=== PATIENT | male | born 1970 | race Two or more races ===

== ENCOUNTER 2023-10-14 15:07 | Inpatient (IN) | payer MEDICAID ==
[~2023-10-14] VITALS: Ht 154.9 cm; Wt 59.0 kg
[2023-10-14 17:59] LABS: Basophils # (auto) 0 10 ^3/uL (0-0.2); Eosinophils # (auto) 0 10 ^3/uL (0-0.8); Eosinophils % (auto) 0.1 % (0.0-7.0); Monocytes # (auto) 0.3 10 ^3/uL (0-1.3); Neutrophils # (auto) 2.5 10 ^3/uL (1.6-8.6); Neutrophils % (auto) 74.8 % (37.0-80.0)
[2023-10-14 18:02] LABS: Basophils % (auto) 0.6 % (0.0-2.0); Hematocrit 21.9 % (41.0-53.0); Lymphocytes # (auto) 0.5 10 ^3/uL (0.4-5.4); Lymphocytes % (auto) 15.7 % (10.0-50.0); Mean Corpuscular Hemoglobin 22.1 pg (28.0-32.0); Mean Corpuscular Hgb Conc. 30.7 g/dL (32.0-36.0); Monocytes % (auto) 8.8 % (0.0-12.0); Red Blood Cells 3.04 10^6/uL (4.5-5.90); Red Cell Distribution Width 17.1 % (11.8-14.3); White Blood Cell 3.4 10^3/uL (4.4-10.8)
[2023-10-14 18:07] LABS: Hemoglobin 6.7 g/dL (13.5-17.5)
[2023-10-14 18:15] LABS: Alanine Aminotransferase 17 U/L (7-40); Albumin 3.6 g/dL (3.2-4.8); Alkaline Phosphatase 95 U/L (46-116); Anion Gap 5 (5-15); Aspartate Aminotransferase 34 U/L (13-40); BUN/Creatinine Ratio 15.6 (10.0-20.0); Bilirubin, Total 0.9 mg/dL (0.2-1.0); Blood Urea Nitrogen 17 mg/dL (9-23); Calcium 8.2 mg/dL (8.5-10.1); Carbon Dioxide 23 mmol/L (20-30); Chloride 107 mmol/L (98-107); Glucose 94 mg/dL (74-106); Potassium 3.6 mmol/L (3.5-5.1); Sodium 135 mmol/L (136-145); Total Protein 7.8 g/dL (5.7-8.2)
[2023-10-14 18:24] LABS: CRP High Sensitivity 3.16 mg/dL (<1.0)
[2023-10-14] MEDS: PIPERACILLIN-TAZOB 3.375GM 100 ML IV ONE (19:01)
[2023-10-14] MEDS: VANCOMYCIN 1GM/200ML 200 ML IV ONE (19:01)
[2023-10-14 19:03] LABS: Erythrocyte Sedimentation Rate 111 mm/hr (0-20)
[2023-10-14 19:25] VITALS: PULSE 93; RESP 24; O2SAT 100
[2023-10-14 19:29] LABS: Anisocytosis Slight; Hypochromia Moderate; Platelet Estimate Decreased
[2023-10-14] MEDS: VANCOMYCIN PER PHARMACY 0 MG IV SCH (20:23)
[2023-10-14] MEDS ORDERED: NITROGLYCERIN 0.4 MG SL TAB SL PRN (22:15)
[2023-10-14] MEDS ORDERED: DOCUSATE SOD 100 MG CAP PO PRN (22:15)
[2023-10-14] MEDS ORDERED: ONDANSETRON HCL 4 MG/2 ML VIAL IV PRN (22:15)
[2023-10-14] MEDS ORDERED: RABIES IMMUNE GLOBULIN 300unit/2ml (150unit/ml) INJ IM ONE (22:15)
[2023-10-14] MEDS ORDERED: MORPHINE SULFATE INJ 2 MG/ml SYRG IV PRN ×2 (22:15)
[2023-10-14 22:19] LABS: Urine Bacteria None Seen /hpf (None Seen)
[2023-10-14 22:35] LABS: Urine Blood TRACE /uL (Negative); Urine Clarity Clear (Clear); Urine Color Yellow (Yellow); Urine Mucus FEW (None Seen); Urine Protein, UAD TRACE (Negative); Urine Urobilinogen Normal (Negative); Urine WBC <1 /hpf (0 - 3); Urine pH 5.5 (5.0-9.0)
[2023-10-14 22:36] LABS: Amphetamine Screen, Urine Neg (NEGATIVE); Barbiturate Scree,Urine Neg (NEGATIVE); Benzodiazephine Screen, Urine Neg (NEGATIVE); Cannabinoid Screen, Urine Neg (NEGATIVE); Cocaine Screen, Urine Neg (NEGATIVE); Opiate Scree,Urine Neg (NEGATIVE); Phencyclidine Screen, Urine Neg (NEGATIVE)
[2023-10-14 22:41] LABS: % Iron Saturation 4.9 % (20-55)
[2023-10-14] MEDS: PIPERACILLIN-TAZOB 3.375GM 100 ML IV SCH (22:51)
[2023-10-14] MEDS: TETANUS-DIPTH-ACEL PERTUSSIS 0.5ML SYR Tdap IM ONE (22:54)
[2023-10-14] MEDS: ACETAMINOPHEN 325 MG TAB PO PRN (23:06)
[2023-10-14 23:25] VITALS: BP 120/56; PULSE 98; RESP 15; TEMP 100.2
[2023-10-14 23:48] VITALS: BP 97/55; PULSE 88; RESP 19; TEMP 103
[2023-10-15] VITALS (12 sets, daily range): BP systolic 100–135; BP diastolic 61–72; PULSE 76–89; RESP 16–20; TEMP 98–100.3; O2SAT 96–100
[2023-10-15] MEDS: HYDROcodone-ACET 5/325MG TAB PO PRN (04:37)
[2023-10-15 06:16] LABS: Basophils # (auto) 0 10 ^3/uL (0-0.2); Basophils % (auto) 0.6 % (0.0-2.0); Eosinophils # (auto) 0 10 ^3/uL (0-0.8); Lymphocytes # (auto) 0.5 10 ^3/uL (0.4-5.4); Monocytes # (auto) 0.3 10 ^3/uL (0-1.3); Neutrophils # (auto) 2.3 10 ^3/uL (1.6-8.6); White Blood Cell 3.2 10^3/uL (4.4-10.8)
[2023-10-15 06:19] LABS: Eosinophils % (auto) 0.2 % (0.0-7.0); Hematocrit 25.5 % (41.0-53.0); Hemoglobin 8.3 g/dL (13.5-17.5); Lymphocytes % (auto) 15.5 % (10.0-50.0); Mean Corpuscular Hemoglobin 24.1 pg (28.0-32.0); Mean Corpuscular Hgb Conc. 32.6 g/dL (32.0-36.0); Mean Corpuscular Volume 74.1 fL (80.0-100.0); Monocytes % (auto) 10.3 % (0.0-12.0); Neutrophils % (auto) 73.4 % (37.0-80.0); Nucleated Red Blood Cells % 0.1 %; Red Blood Cells 3.45 10^6/uL (4.5-5.90); Red Cell Distribution Width 19.4 % (11.8-14.3)
[2023-10-15 06:30] LABS: Alanine Aminotransferase 15 U/L (7-40); Alkaline Phosphatase 93 U/L (46-116); Anion Gap 6 (5-15); Aspartate Aminotransferase 28 U/L (13-40); BUN/Creatinine Ratio 13.3 (10.0-20.0); Blood Urea Nitrogen 16 mg/dL (9-23); Calcium 8.3 mg/dL (8.7-10.4); Carbon Dioxide 21 mmol/L (20-30); Chloride 108 mmol/L (98-107); Glucose 113 mg/dL (74-106); Potassium 3.7 mmol/L (3.5-5.1); Sodium 135 mmol/L (136-145)
[2023-10-15 06:31] LABS: Albumin 3.2 g/dL (3.2-4.8); Bilirubin, Total 1.1 mg/dL (0.2-1.0); Total Protein 7.3 g/dL (5.7-8.2)
[2023-10-15] MEDS: PANTOPRAZOLE 40 MG/10 ML VIAL INJ IV SCH (10:16)
[2023-10-15] MEDS ORDERED: VANCOMYCIN 750mg/150ml 150 ML IV SCH (11:00)
[2023-10-15 11:09] LABS: % Iron Saturation 11.7 % (20-55)
[2023-10-15 11:31] LABS: INR 1.15 (0.9-1.15); Partial Thromboplastin Time 24.1 SEC (24.5-34.5)
[2023-10-15 11:54] LABS: Folate (Folic Acid) 12.53 ng/mL (>5.38)
[2023-10-15 11:56] LABS: Ferritin 7.3 ng/mL (22-322)
[2023-10-15] MEDS ORDERED: RABIES IMMUNE GLOBULIN 300unit/2ml (150unit/ml) INJ IM ONE (13:15)
[2023-10-15] MEDS: metroNIDAZOLE 500MG/100ML 100 ML IV SCH (20:59)
[2023-10-15] MEDS: CEFEPIME 1GM/ 50ML 50 ML IV SCH (22:14)
[2023-10-16] VITALS (9 sets, daily range): BP systolic 107–119; BP diastolic 70–76; PULSE 76–89; RESP 17–20; TEMP 97.9–100.1; O2SAT 96–99
[2023-10-16] MEDS: RABIES VACCINE (PCEC)/PF 2.5 UNITS IM ONE (00:25)
[2023-10-16] MEDS: RABIES IMMUNE GLOBULIN 300 UNIT/ML INJ IM ONE (00:52)
[2023-10-16 05:54] LABS: Basophils # (auto) 0 10 ^3/uL (0-0.2); Basophils % (auto) 0.7 % (0.0-2.0); Eosinophils # (auto) 0 10 ^3/uL (0-0.8); Eosinophils % (auto) 0.4 % (0.0-7.0); Hematocrit 26.5 % (41.0-53.0); Hemoglobin 8.4 g/dL (13.5-17.5); Lymphocytes # (auto) 0.4 10 ^3/uL (0.4-5.4); Lymphocytes % (auto) 17.2 % (10.0-50.0); Mean Corpuscular Hemoglobin 23.6 pg (28.0-32.0); Mean Corpuscular Hgb Conc. 31.7 g/dL (32.0-36.0); Mean Corpuscular Volume 74.5 fL (80.0-100.0); Monocytes # (auto) 0.2 10 ^3/uL (0-1.3); Monocytes % (auto) 8.8 % (0.0-12.0); Neutrophils # (auto) 1.8 10 ^3/uL (1.6-8.6); Neutrophils % (auto) 72.9 % (37.0-80.0); Nucleated Red Blood Cells % 0.2 %; Red Blood Cells 3.56 10^6/uL (4.5-5.90); Red Cell Distribution Width 19.3 % (11.8-14.3); White Blood Cell 2.5 10^3/uL (4.4-10.8)
[2023-10-16 06:00] LABS: Chloride 106 mmol/L (98-107); Potassium 3.6 mmol/L (3.5-5.1); Sodium 134 mmol/L (136-145)
[2023-10-16 06:01] LABS: Anion Gap 8 (5-15); Carbon Dioxide 20 mmol/L (20-30)
[2023-10-16 06:02] LABS: Calcium 8.3 mg/dL (8.7-10.4)
[2023-10-16 06:06] LABS: Glucose 115 mg/dL (74-106)
[2023-10-16 06:07] LABS: BUN/Creatinine Ratio 11.8 (10.0-20.0); Blood Urea Nitrogen 12 mg/dL (9-23); Magnesium 1.9 mg/dL (1.6-2.6)
[2023-10-16] MEDS ORDERED: PROPOFOL 10 MG/ML 20 ML IV ONE ×2 (13:01→13:26)
[2023-10-16] MEDS ORDERED: KETOROLAC TROMETH 30 MG/ML 1ML VIAL ONE (13:01)
[2023-10-16] MEDS ORDERED: GLYCOPYRROLATE 0.2 MG/ML 1ML VIAL ONE (13:01)
[2023-10-16] MEDS ORDERED: ONDANSETRON HCL 4 MG/2 ML VIAL ONE (13:01)
[2023-10-16] MEDS ORDERED: DexAMETHasone SOD PHOS 10MG/1ML VIAL INJ ONE (13:01)
[2023-10-16] MEDS ORDERED: LIDOCAINE 1% INJ PF 5ML AMP ONE (13:01)
[2023-10-16] MEDS ORDERED: KETAMINE 50mg/ML 1ml syringe ONE (13:23)
[2023-10-16] MEDS: LIDOCAINE 1% HCL (LOCAL ANESTH.) INJ 20ML MDV ONE (13:35)
[2023-10-16] MEDS: VANCOMYCIN HCL 1000 MG VL ONE (13:35)
[2023-10-16] MEDS: BUPIVACAINE 0.25% INJ 50ML VIAL ONE (13:35)
[2023-10-16] MEDS ORDERED: ONDANSETRON HCL 4 MG/2 ML VIAL IV PRN (14:00)
[2023-10-16] MEDS ORDERED: HYDROmorphone HCL 2 MG/ML VL/or syr IV PRN (14:00)
[2023-10-16] MEDS ORDERED: fentaNYL CITRATE 100 MCG/2 ML VL IV PRN (14:00)
[2023-10-16] MEDS ORDERED: ePHEDrine SULFATE 50 MG/ML AMP IV PRN (14:00)
[2023-10-16] MEDS ORDERED: LABETALOL HCL 5 MG/ML 4ML SYRINGE IV PRN (14:00)
[2023-10-16] MEDS ORDERED: NALOXONE HCL 0.4 MG/ML VIAL IV PRN (14:00)
[2023-10-16] MEDS ORDERED: FLUMAZENIL 0.1 MG/ML INJ 10ML MDV IV PRN (14:00)
[2023-10-16] MEDS ORDERED: hydrALAZINE HCL 20 MG/ML VL IV PRN (14:00)
[2023-10-16] MEDS: DexAMETHasone SOD PHOS 4 MG/1ML SDV INJ ONE (16:16)
[2023-10-16] MEDS: EPINEPHrine HCL 1 MG/1 ML AMP ONE (16:16)
[2023-10-16] MEDS: GABAPENTIN 100 MG CAP ONE (16:17)
[2023-10-16] MEDS: ACETAMINOPHEN IV 1000 MG/100ML (10MG/ML) IV ONE (16:17)
[2023-10-16] MEDS: ACETAMINOPHEN IV 100 ML IV ONE (16:17)
[2023-10-16] MEDS: CELECOXIB 100 MG CAP PO ONE (16:17)
[2023-10-16] MEDS: CELECOXIB 100 MG CAP ONE (16:17)
[2023-10-16] MEDS: GABAPENTIN 100 MG CAP PO ONE (16:18)
[2023-10-16] MEDS: ceFAZolin 2 GM/D5W50ml 50 ML IV ONE (16:18)
[2023-10-16] MEDS: AMPICILLIN & SULBACTAM SODIUM 3 GM in SODIUM CHL 0.9% 100 ML IV SCH (17:43)
[2023-10-17 01:00] VITALS: BP 114/48; PULSE 66; RESP 18; TEMP 97.8; O2SAT 97
[2023-10-17 05:00] VITALS: BP 119/65; PULSE 62; RESP 18; TEMP 97.6; O2SAT 97
[2023-10-17 05:45] LABS: Basophils # (auto) 0 10 ^3/uL (0-0.2); Eosinophils # (auto) 0 10 ^3/uL (0-0.8); Hematocrit 25.3 % (41.0-53.0); Lymphocytes # (auto) 0.2 10 ^3/uL (0.4-5.4); Mean Corpuscular Hgb Conc. 31.4 g/dL (32.0-36.0); Monocytes # (auto) 0.1 10 ^3/uL (0-1.3); Neutrophils # (auto) 1.9 10 ^3/uL (1.6-8.6)
[2023-10-17 05:47] LABS: Hemoglobin 7.9 g/dL (13.5-17.5); Lymphocytes % (auto) 10.7 % (10.0-50.0); Mean Corpuscular Hemoglobin 23.6 pg (28.0-32.0); Mean Corpuscular Volume 75.1 fL (80.0-100.0); Monocytes % (auto) 4.5 % (0.0-12.0); Neutrophils % (auto) 84.8 % (37.0-80.0); Nucleated Red Blood Cells % 0.2 %; Red Blood Cells 3.37 10^6/uL (4.5-5.90); Red Cell Distribution Width 19.4 % (11.8-14.3); White Blood Cell 2.3 10^3/uL (4.4-10.8)
[2023-10-17 05:57] LABS: Anion Gap 8 (5-15); Calcium 8.6 mg/dL (8.7-10.4); Carbon Dioxide 20 mmol/L (20-30); Chloride 106 mmol/L (98-107); Potassium 4.1 mmol/L (3.5-5.1); Sodium 134 mmol/L (136-145)
[2023-10-17 06:03] LABS: BUN/Creatinine Ratio 21.8 (10.0-20.0); Blood Urea Nitrogen 19 mg/dL (9-23); Glucose 174 mg/dL (74-106); Magnesium 2.1 mg/dL (1.6-2.6)
[2023-10-17 06:34] LABS: Anisocytosis Slight; Giant Platelets Few; Hypochromia Moderate; Platelet Estimate Decreased
[2023-10-17 06:35] LABS: Ovalocytes FEW
[2023-10-17 08:19] VITALS: BP 107/67; PULSE 78; RESP 20; TEMP 98; O2SAT 98
[2023-10-17] MEDS: IRON SUCROSE COMPLEX 100 ML IV SCH (12:55)
[2023-10-17 13:11] VITALS: BP 129/66; PULSE 71; RESP 19; TEMP 97.6; O2SAT 98
[2023-10-17 16:59] VITALS: BP 123/85; PULSE 77; RESP 21; TEMP 97.6; O2SAT 99
[2023-10-17 22:39] VITALS: BP 128/59; PULSE 78; RESP 18; TEMP 97.7; O2SAT 98
[2023-10-18] VITALS (7 sets, daily range): BP systolic 101–122; BP diastolic 51–67; PULSE 65–75; RESP 16–20; TEMP 97.5–98.1; O2SAT 97–100
[2023-10-18 06:08] LABS: Basophils # (auto) 0 10 ^3/uL (0-0.2); Eosinophils # (auto) 0 10 ^3/uL (0-0.8); Hemoglobin 8.7 g/dL (13.5-17.5); Monocytes # (auto) 0.2 10 ^3/uL (0-1.3); Neutrophils # (auto) 1.9 10 ^3/uL (1.6-8.6); White Blood Cell 2.4 10^3/uL (4.4-10.8)
[2023-10-18 06:11] LABS: Hematocrit 27.4 % (41.0-53.0); Lymphocytes # (auto) 0.3 10 ^3/uL (0.4-5.4); Lymphocytes % (auto) 12.4 % (10.0-50.0); Mean Corpuscular Hemoglobin 23.3 pg (28.0-32.0); Mean Corpuscular Hgb Conc. 31.7 g/dL (32.0-36.0); Mean Corpuscular Volume 73.5 fL (80.0-100.0); Monocytes % (auto) 7.4 % (0.0-12.0); Neutrophils % (auto) 80.2 % (37.0-80.0); Nucleated Red Blood Cells % 0.3 %; Red Blood Cells 3.73 10^6/uL (4.5-5.90); Red Cell Distribution Width 19.1 % (11.8-14.3)
[2023-10-18 06:21] LABS: Anion Gap 7 (5-15); Carbon Dioxide 23 mmol/L (20-30); Chloride 110 mmol/L (98-107); Potassium 3.7 mmol/L (3.5-5.1); Sodium 140 mmol/L (136-145)
[2023-10-18 06:22] LABS: Calcium 8.6 mg/dL (8.5-10.1)
[2023-10-18 06:27] LABS: BUN/Creatinine Ratio 15.8 (10.0-20.0); Blood Urea Nitrogen 16 mg/dL (9-23); Glucose 111 mg/dL (74-106)
== END 2023-10-18 18:14 | disposition home health service (06) | DRG 710 ==
LOC: ER 15:07 → TELE 22:24 → TELE-CENTR 10-15 02:30 → CENTRAL 10-15 15:04
PROVIDERS: ADMIT Internal Medicine Pulmonary Disease; ATTEND Internal Medicine Pulmonary Disease
PROC: 30233N1 Transfusion of Nonautologous Red Blood Cells into Peripheral Vein, Percutaneous Approach (ICD-10-PCS; principal; 2023-10-14)
PROC: 0KBC0ZZ Excision of Right Hand Muscle, Open Approach (ICD-10-PCS; 2023-10-14)
PROC: 3E0234Z Introduction of Serum, Toxoid and Vaccine into Muscle, Percutaneous Approach (ICD-10-PCS; 2023-10-16)
DX: A41.9 Sepsis, unspecified organism (principal); D61.818 Other pancytopenia; D69.6 Thrombocytopenia, unspecified; S61.451A Open bite of right hand, initial encounter; D50.9 Iron deficiency anemia, unspecified; D64.9 Anemia, unspecified; L03.113 Cellulitis of right upper limb; L02.511 Cutaneous abscess of right hand; S62.612A Displaced fracture of proximal phalanx of right middle finger, initial encounter for closed fracture; W54.0XXA Bitten by dog, initial encounter; Z83.3 Family history of diabetes mellitus; Z85.89 Personal history of malignant neoplasm of other organs and systems; Y93.89 Activity, other specified; Y92.89 Other specified places as the place of occurrence of the external cause; Y99.8 Other external cause status; Z21 Asymptomatic human immunodeficiency virus [HIV] infection status; Z20.3 Contact with and (suspected) exposure to rabies; Z29.14 Encounter for prophylactic rabies immune globulin
CPT/HCPCS: 36415; 36430; 71045; 73200; 80048; 80053; 80307; 81001; 82270; 82607; 82728; 82746; 83540; 83550; 83605; 83615; 83735; 84484; 85025; 85045; 85610; 85652; 85730; 86141; 86850; 86880; 86900; 86901; 86920; 87040; 87070; 87075; 87205; 90375; 90377; 90675; 90715; 99291; C9113; G0378; J0131; J0171; J1100; J1756; J1885; J2001; J2405; J2543; J2704; J3490

== ENCOUNTER 2023-11-04 11:30 | Emergency (ER) | payer MEDICAID ==
[~2023-11-04] VITALS: Ht 154.9 cm; Wt 55.7 kg
[2023-11-04 12:42] VITALS: BP 119/75; PULSE 81; RESP 12; TEMP 98.3; O2SAT 100
== END 2023-11-04 12:46 | disposition home or self-care (01) ==
LOC: ER 11:30
DX: T85.9XXD Unspecified complication of internal prosthetic device, implant and graft, subsequent encounter (principal); N18.9 Chronic kidney disease, unspecified; Z46.89 Encounter for fitting and adjustment of other specified devices; Z86.2 Personal history of diseases of the blood and blood-forming organs and certain disorders involving the immune mechanism; Y92.89 Other specified places as the place of occurrence of the external cause

== ENCOUNTER 2024-01-21 11:01 | Inpatient (IN) | payer MEDICAID ==
[~2024-01-21] VITALS: Ht 154.9 cm; Wt 69.9 kg
[2024-01-21] VITALS (13 sets, daily range): BP systolic 99–106; BP diastolic 42–63; PULSE 71–82; RESP 15–22; TEMP 97.7–98.3; O2SAT 97–100
[2024-01-21 11:41] LABS: Basophils # (auto) 0 10 ^3/uL (0-0.2); Basophils % (auto) 1.2 % (0.0-2.0); Eosinophils # (auto) 0 10 ^3/uL (0-0.8); Eosinophils % (auto) 0.6 % (0.0-7.0); Hematocrit 12.1 % (41.0-53.0); Lymphocytes # (auto) 0.5 10 ^3/uL (0.4-5.4); Mean Corpuscular Hemoglobin 19.6 pg (28.0-32.0); Mean Corpuscular Hgb Conc. 29.5 g/dL (32.0-36.0); Mean Corpuscular Volume 66.4 fL (80.0-100.0); Monocytes # (auto) 0.1 10 ^3/uL (0-1.3); Monocytes % (auto) 8.2 % (0.0-12.0); Neutrophils # (auto) 0.8 10 ^3/uL (1.6-8.6); Nucleated Red Blood Cells % 0.8 %; Red Blood Cells 1.83 10^6/uL (4.5-5.90)
[2024-01-21 11:45] LABS: White Blood Cell 1.5 10^3/uL (4.4-10.8)
[2024-01-21 11:46] LABS: Hemoglobin 3.6 g/dL (13.5-17.5)
[2024-01-21 11:53] LABS: Alanine Aminotransferase 41 U/L (7-40); Albumin 3.2 g/dL (3.2-4.8); Alkaline Phosphatase 153 U/L (46-116); Anion Gap 10 (5-15); Aspartate Aminotransferase 23 U/L (13-40); BUN/Creatinine Ratio 11.5 (10.0-20.0); Blood Urea Nitrogen 15 mg/dL (9-23); Carbon Dioxide 19 mmol/L (20-30); Chloride 110 mmol/L (98-107); Glucose 116 mg/dL (74-106); Potassium 3.7 mmol/L (3.5-5.1); Sodium 139 mmol/L (136-145)
[2024-01-21 11:54] LABS: Bilirubin, Total 0.8 mg/dL (0.2-1.0); Total Protein 6.6 g/dL (5.7-8.2)
[2024-01-21 12:06] LABS: Hypochromia Marked; Platelet Estimate Decreased
[2024-01-21 12:07] LABS: Ovalocytes MANY
[2024-01-21 12:40] LABS: % Iron Saturation 3.6 % (20-55)
[2024-01-21 12:44] LABS: Ferritin 4.1 ng/mL (22-322); Folate (Folic Acid) 13.86 ng/mL (>5.38)
[2024-01-21 13:20] LABS: INR 1.23 (0.9-1.15); Prothrombin Time 12.8 sec (9.3-11.8)
[2024-01-21] MEDS ORDERED: ONDANSETRON HCL 4 MG/2 ML VIAL IV PRN (14:15)
[2024-01-21] MEDS ORDERED: NITROGLYCERIN 0.4 MG SL TAB SL PRN (14:15)
[2024-01-21] MEDS ORDERED: MORPHINE SULFATE INJ 2 MG/ml SYRG IV PRN ×2 (14:15)
[2024-01-21] MEDS ORDERED: DOCUSATE SOD 100 MG CAP PO PRN (14:15)
[2024-01-21] MEDS: SODIUM CHLORIDE 0.9% 1,000 ML IV SCH (16:00)
[2024-01-21] MEDS: PANTOPRAZOLE 40 MG/10 ML VIAL INJ IV ONE (16:00)
[2024-01-21] MEDS: cefTRIAXone 1GM/50ML D5W 50 ML IV ONE (16:00)
[2024-01-21 19:11] LABS: Hematocrit 18.3 % (41.0-53.0)
[2024-01-21 19:17] LABS: Hemoglobin 5.6 g/dL (13.5-17.5)
[2024-01-21 19:22] LABS: Wright Stain Ready for Review
[2024-01-22] VITALS (12 sets, daily range): BP systolic 96–114; BP diastolic 50–75; PULSE 52–74; RESP 16–23; TEMP 97.9–98.7; O2SAT 98–100
[2024-01-22] MEDS ORDERED: BICT1TAB PO (02:14)
[2024-01-22] MEDS ORDERED: BACDST PO (02:14)
[2024-01-22 06:49] LABS: Basophils # (auto) 0 10 ^3/uL (0-0.2); Eosinophils # (auto) 0 10 ^3/uL (0-0.8); Hemoglobin 8.2 g/dL (13.5-17.5); Lymphocytes # (auto) 0.3 10 ^3/uL (0.4-5.4)
[2024-01-22 06:51] LABS: Basophils % (auto) 1.5 % (0.0-2.0); Eosinophils % (auto) 1.6 % (0.0-7.0); Hematocrit 25.1 % (41.0-53.0); Lymphocytes % (auto) 20.7 % (10.0-50.0); Mean Corpuscular Hemoglobin 25.5 pg (28.0-32.0); Mean Corpuscular Hgb Conc. 32.7 g/dL (32.0-36.0); Mean Corpuscular Volume 77.9 fL (80.0-100.0); Monocytes # (auto) 0.2 10 ^3/uL (0-1.3); Monocytes % (auto) 9.6 % (0.0-12.0); Neutrophils % (auto) 66.6 % (37.0-80.0); Nucleated Red Blood Cells % 0.5 %; Red Blood Cells 3.22 10^6/uL (4.5-5.90)
[2024-01-22 07:11] LABS: Alanine Aminotransferase 31 U/L (7-40); Albumin 2.9 g/dL (3.2-4.8); Alkaline Phosphatase 129 U/L (46-116); Anion Gap 7 (5-15); Aspartate Aminotransferase 22 U/L (13-40); BUN/Creatinine Ratio 10.2 (10.0-20.0); Bilirubin, Total 2.2 mg/dL (0.2-1.0); Blood Urea Nitrogen 11 mg/dL (9-23); Calcium 7.9 mg/dL (8.7-10.4); Carbon Dioxide 18 mmol/L (20-30); Chloride 112 mmol/L (98-107); Glucose 83 mg/dL (74-106); Potassium 3.7 mmol/L (3.5-5.1); Sodium 137 mmol/L (136-145)
[2024-01-22 07:39] LABS: Red Cell Distribution Width 23.6 % (11.8-14.3)
[2024-01-22 07:40] LABS: White Blood Cell 1.6 10^3/uL (4.4-10.8)
[2024-01-22 08:38] LABS: Anisocytosis Slight; Platelet Estimate Decreased
[2024-01-22] MEDS: cefTRIAXone 1GM/50ML D5W 50 ML IV SCH (08:58)
[2024-01-22] MEDS: SULFAMETHOX W/TRIMETH(800/160MG) DS TAB PO SCH (09:42)
[2024-01-22] MEDS: PANTOPRAZOLE 40 MG/10 ML VIAL INJ IV SCH (09:42)
[2024-01-22] MEDS: Bictegravir-Emtricitabine-Teno (Biktarvy 50-200-25 mg) 1 TAB PO SCH (11:12)
[2024-01-22] MEDS: IRON SUCROSE COMPLEX 100 ML IV SCH (12:42)
[2024-01-22 19:10] LABS: Triglycerides 59 mg/dL (< 150)
[2024-01-22 19:11] LABS: LDL Cholesterol 40 mg/dL (< 100)
[2024-01-22 19:12] LABS: Cholesterol 74 mg/dL (< 200); HDL Cholesterol 25 mg/dL (40-59)
[2024-01-22 21:52] LABS: Urine Bacteria FEW /hpf (None Seen); Urine Blood Negative /uL (Negative); Urine Clarity Clear (Clear); Urine Color Yellow (Yellow); Urine Mucus FEW (None Seen); Urine Protein, UAD Negative (Negative); Urine Specific Gravity 1.019 (1.001-1.035); Urine Sperm PRESENT /hpf (None Seen); Urine Urobilinogen Normal (Negative); Urine WBC 1 /hpf (0 - 3); Urine pH 6.5 (5.0-9.0)
[2024-01-22 22:04] LABS: Amphetamine Screen, Urine Neg (NEGATIVE); Barbiturate Scree,Urine Neg (NEGATIVE); Benzodiazephine Screen, Urine Neg (NEGATIVE); Cannabinoid Screen, Urine Neg (NEGATIVE); Cocaine Screen, Urine Neg (NEGATIVE); Opiate Scree,Urine Neg (NEGATIVE); Phencyclidine Screen, Urine Neg (NEGATIVE)
[2024-01-23 01:00] VITALS: BP 113/80; PULSE 70; RESP 16; TEMP 98.5; O2SAT 100
[2024-01-23 05:00] VITALS: BP 109/75; PULSE 74; RESP 16; TEMP 98.2; O2SAT 99
[2024-01-23 06:23] LABS: Hemoglobin 8.1 g/dL (13.5-17.5)
[2024-01-23 06:27] LABS: Hematocrit 24.8 % (41.0-53.0); Mean Corpuscular Hemoglobin 25.2 pg (28.0-32.0); Mean Corpuscular Hgb Conc. 32.8 g/dL (32.0-36.0); Red Blood Cells 3.22 10^6/uL (4.5-5.90)
[2024-01-23 06:30] LABS: Alanine Aminotransferase 26 U/L (7-40); Albumin 2.8 g/dL (3.2-4.8); Alkaline Phosphatase 126 U/L (46-116); Anion Gap 6 (5-15); Aspartate Aminotransferase 21 U/L (13-40); BUN/Creatinine Ratio 6.6 (10.0-20.0); Blood Urea Nitrogen 8 mg/dL (9-23); Calcium 7.7 mg/dL (8.7-10.4); Carbon Dioxide 18 mmol/L (20-30); Chloride 111 mmol/L (98-107); Glucose 86 mg/dL (74-106); Potassium 3.6 mmol/L (3.5-5.1); Sodium 135 mmol/L (136-145)
[2024-01-23 06:31] LABS: Bilirubin, Total 1.3 mg/dL (0.2-1.0); Total Protein 5.8 g/dL (5.7-8.2)
[2024-01-23 06:34] LABS: Red Cell Distribution Width 23.4 % (11.8-14.3)
[2024-01-23 06:36] LABS: Band Neutrophils % (manual) 0; Basophils % (manual) 0 (0.0-2.0); Blast Cells 0; Metamyelocytes % 0; Myelocytes % 0; Promyelocytes % 0; Reactive Lymphocytes 0; White Blood Cell 1.5 10^3/uL (4.4-10.8)
[2024-01-23 08:00] VITALS: PULSE 69; RESP 18; O2SAT 99
[2024-01-23 08:34] VITALS: BP 120/74; PULSE 69; RESP 18; TEMP 98.1; O2SAT 99
[2024-01-23 08:37] LABS: Anisocytosis Slight; Eosinophils % (manual) 2 (0-7); Lymphocytes % (manual) 16 (10.0-50.0); Monocytes % (manual) 6 (0-12); Ovalocytes FEW; Platelet Estimate Decreased
[2024-01-23 12:29] VITALS: BP 113/66; PULSE 72; RESP 17; TEMP 98.3; O2SAT 96
[2024-01-23] MEDS ORDERED: FER325T PO (14:38)
[2024-01-23] MEDS ORDERED: PANT40T PO (14:53)
[2024-01-23 15:27] VITALS: BP 113/66; PULSE 72; RESP 17; TEMP 98.3; O2SAT 96
[2024-01-24 08:06] LABS: RPR Non Reactive (Non Reactive)
[2024-01-26 09:57] LABS: Hepatitis B Surface Antigen Negative (Negative)
[2024-01-26 10:18] LABS: Hepatitis A Ab IgM Negative
[2024-01-26 10:19] LABS: Hepatitis B Core IgM Negative
[2024-01-26 12:18] LABS: Hepatitis C Antibody Reactive (Negative)
== END 2024-01-23 16:20 | disposition home or self-care (01) | DRG 253 ==
LOC: ER 11:01 → OVERFLOW 14:42 → CENTRAL 01-22 01:42
PROVIDERS: ADMIT Internal Medicine Geriatric Medicine; ATTEND Internal Medicine Geriatric Medicine
PROC: 30233N1 Transfusion of Nonautologous Red Blood Cells into Peripheral Vein, Percutaneous Approach (ICD-10-PCS; principal; 2024-01-21)
DX: K92.2 Gastrointestinal hemorrhage, unspecified (principal); D61.818 Other pancytopenia; D69.6 Thrombocytopenia, unspecified; D70.9 Neutropenia, unspecified; D62 Acute posthemorrhagic anemia; L03.113 Cellulitis of right upper limb; N18.2 Chronic kidney disease, stage 2 (mild); R74.01 Elevation of levels of liver transaminase levels; Z83.3 Family history of diabetes mellitus; Z79.899 Other long term (current) drug therapy
CPT/HCPCS: 36415; 71045; 80053; 80061; 80074; 80307; 81001; 82270; 82607; 82728; 82746; 82962; 83036; 83540; 83550; 83605; 83615; 84443; 85007; 85014; 85018; 85025; 85027; 85045; 85384; 85610; 86592; 86850; 86900; 86901; 86920; 87040; 93005; 93970; G0378; J1756; J2470